=== PATIENT | female | born 1930 | race Caucasian/White ===

== ENCOUNTER 2016-11-21 11:07 | Day surgery (SDC) | payer MEDICARE, OTHER ==
[~2016-11-21 11:07] MED LIST: ACET325T11 PO; EDOX1TAB5 PO; GLUC250C5 PO; METO25CR PO; TAB-TAB PO; VITA-83 PO
[2016-11-21] MEDS ORDERED: LACTATED RINGER'S 1000 ML IV SCH (12:30)
[2016-11-21] MEDS ORDERED: INSULIN HUMAN REGULAR 1,000 UNITS/10 ML VIAL SQ PRN (12:30)
[2016-11-21] MEDS ORDERED: SODIUM CHLORID 0.9% 500 ML IV SCH (12:30)
[2016-11-21] MEDS ORDERED: METOPROLOL TARTRATE 25 MG TAB PO PRN (12:30)
[2016-11-21] MEDS ORDERED: EDOX1TAB5 PO (12:37)
[2016-11-21] MEDS ORDERED: GLUC1CAP14 PO (12:37)
[2016-11-21] MEDS ORDERED: METO25TA6 PO (12:37)
[2016-11-21] MEDS ORDERED: ASCO500C PO (12:37)
[2016-11-21] MEDS ORDERED: MULT1TAB84 PO (12:37)
[2016-11-21] MEDS ORDERED: AMIO200T PO (12:37)
[2016-11-21] MEDS ORDERED: ACET1CAP18 PO (12:37)
[2016-11-21] MEDS ORDERED: PROPOFOL 200 MG/20 ML AMP IV ONE (13:30)
--- NOTE | 2016-11-21 17:31 | EKG ---
Date Performed: 11/21/2016 Time Performed: 11:43:48 PTAGE: 86 years EKG: Atrial fibrillation Extensive ST-T changes are nonspecific Abnormal ECG PREVIOUS TRACING : 07/01/2016 13.39 Atrial fibrillation is new since prior tracing. Clinical co rrelation recommended. DOCTOR: Martin Guadarrama Interpretating Date/Time 11/21/2016 17:28:51
--- NOTE | 2016-11-22 17:17 | EKG ---
Date Performed: 11/21/2016 Time Performed: 13:48:04 PTAGE: 86 years EKG: Sinus rhythm with PAC(s) with 1st degree A-V block Consider left atrial abnormality Septal ST changes are nonspec ific Compared to previous tracing, the rhythm has changed from atrial fibrillation to sinus rhythm wi th PACs Abnormal ECG PREVIOUS TRACING : 11/21/2016 11.43 DOCTOR: Charly Ndiaye Interpretating Date/Time 11/22/2016 17:15:48
--- NOTE | 2016-12-03 20:59 | PD.CARD ---
Cardiology Procedure Note Procedure Name: DC cardioversion Procedure Date: Nov 21, 2016 Procedure Note: Indication: Atrial fibrillation Procedure: 200 J biphasic shock resulted in sinus rhythm Dx: Successful cardioversion of atrial fibrillation Plan: Continue anticoagulation. F/u w me as outpatient. Yelitza Vela MD Dec 03, 2016 20:59
== END 2016-11-21 15:19 | disposition home or self-care (01) ==
LOC: HCAT 11:07 → HDIC 11:07 → HCAT 15:19
PROVIDERS: ATTEND Internal Medicine Interventional Cardiology
DX: I48.0 Paroxysmal atrial fibrillation (principal); I47.1 Supraventricular tachycardia; I34.0 Nonrheumatic mitral (valve) insufficiency; I36.1 Nonrheumatic tricuspid (valve) insufficiency
CPT/HCPCS: 92960; 93005

== ENCOUNTER 2017-01-21 11:44 | Day surgery (SDC) | payer MEDICARE, OTHER ==
[~2017-01-21 11:44] MED LIST changes: +ACET1CAP18 PO; -ACET325T11 PO; +AMIO200T PO; +ASCO500C PO; +GLUC1CAP14 PO; -GLUC250C5 PO; -METO25CR PO; +METO25TA6 PO; +MULT1TAB84 PO; -TAB-TAB PO; -VITA-83 PO
[2017-01-21] MEDS ORDERED: SODIUM CHLORID 0.9% 500 ML IV PRN (12:30)
[2017-01-21] MEDS ORDERED: INSULIN HUMAN REGULAR 1,000 UNITS/10 ML VIAL SQ PRN (12:30)
[2017-01-21] MEDS ORDERED: METOPROLOL TARTRATE 25 MG TAB PO PRN (12:30)
[2017-01-21] MEDS ORDERED: POVIDONE IODINE 5% (ANTISEPSIS KIT) 4 APPLICATIONS EACH NARE PRN (12:30)
[2017-01-21] MEDS ORDERED: LACTATED RINGER'S 1000 ML IV PRN (12:30)
[2017-01-21] MEDS ORDERED: CHLORHEXIDINE GLUCONATE 2 % 1 PACK (2 CLOTHS) TOPICAL PRN (12:30)
--- NOTE | 2017-01-22 13:48 | EKG ---
Date Performed: 01/21/2017 Time Performed: 12:15:44 PTAGE: 86 years EKG: Sinus bradycardia with borderline 1st degree A-V block --- Suspect arm lead reversal - only aVF, V1-V6 analyzed --- Borderline ECG Compared to prior tracing no significant change PREVIOUS TRACING : 11/21/2016 13.48 DOCTOR: Matthew Manrique Interpretating Date/Time 01/22/2017 13:43:03
== END 2017-01-21 13:18 | disposition home or self-care (01) ==
LOC: HCVO 11:44 → HDIC 11:44 → HCVO 13:18
PROVIDERS: ATTEND Internal Medicine Interventional Cardiology
DX: I48.0 Paroxysmal atrial fibrillation (principal); Z53.09 Procedure and treatment not carried out because of other contraindication
CPT/HCPCS: 93005; G0463; 99211

== ENCOUNTER 2017-09-24 11:37 | Emergency (ER) | payer MEDICARE, OTHER ==
[~2017-09-24] VITALS: Ht 170.2 cm; Wt 79.0 kg
[~2017-09-24 11:37] MED LIST changes: +METO1TAB42 PO; -METO25TA6 PO
[2017-09-24 11:41] VITALS: BP 115/54; PULSE 62; RESP 18; TEMP 97.4; O2SAT 94
[2017-09-24] MEDS ORDERED: VITA1000 PO (11:54)
[2017-09-24] MEDS ORDERED: MULT-65 PO (11:55)
[2017-09-24] MEDS ORDERED: ONDANSETRON HCL 4 MG/2 ML VIAL IM ONE (12:00)
--- NOTE | 2017-09-24 12:07 | PD ---
HPI Chief Complaint: Headache Time Seen by Provider: 11:49 Travel History International Travel<30 days: No Contact w/Intl Traveler<30days: No Traveled to known affect area: No History of Present Illness HPI This patient complains of headache. Duration 18 hours. Severity is mild to moderate. No thunderclap onset. No head injury. She does take a blood thinner for history of A. fib. No alleviating factors. No exacerbating factors. Described as a bilateral frontal throbbing. PFSH Past Medical History Heart Rhythm Problems: Yes Diminished Hearing: No Influenza Vaccination: Yes ?: Not Social History Alcohol Use: Yes (once in a while) Tobacco Use: No Allergies-Medications (Allergen,Severity, Reaction): Coded Allergies: No Known Allergies (Unverified Adverse Reaction, Unknown, 09/24/17) Reported Meds & Prescriptions Reported Meds & Active Scripts Active Reported Multi-Vitamin Daily (Multiple Vitamin) 1 Tab Tab 1 Tab PO DAILY Vitamin D-1000 (Cholecalciferol) 1,000 Unit Tab 1,000 Units PO DAILY Savaysa (Edoxaban) 60 Mg Tab 60 Mg PO DAILY Review of Systems General / Constitutional: No: Fever Eyes: No: Visual changes HENT: Positive: Headaches Cardiovascular: Positive: Irregular Rhythm, No: Chest Pain or Discomfort Respiratory: No: Shortness of Breath Gastrointestinal: Positive: Nausea, No: Abdominal Pain Genitourinary: No: Dysuria Musculoskeletal: No: Pain Skin: No Rash Neurologic: Positive: Headache, No: Weakness Psychiatric: No: Depression Endocrine: No: Polydipsia Hematologic/Lymphatic: No: Easy Bruising Physical Exam Narrative GENERAL: Well-nourished, well-developed patient in no apparent distress. SKIN: Focused skin assessment reveals no rash and nodules. Skin is Warm and dry. HEAD: Atraumatic. Normocephalic. EYES: Pupils equal and round. No scleral icterus. No injection or drainage. ENT: No nasal bleeding or discharge. Mucous membranes pink and moist. NECK: Trachea midline. No JVD. No meningeal signs CARDIOVASCULAR: Irregularly irregular rhythm. No murmur appreciated. RESPIRATORY: No accessory muscle use. Clear to auscultation. Breath sounds equal bilaterally. GASTROINTESTINAL: Abdomen soft, non-tender, nondistended. Hepatic and splenic margins not palpable. MUSCULOSKELETAL: No obvious deformities. No clubbing. No cyanosis. No edema. NEUROLOGICAL: Awake and alert. No obvious cranial nerve deficits. Motor grossly within normal limits. Normal speech. PSYCHIATRIC: Appropriate mood and affect; insight and judgment normal. Data Data Last Documented VS Vital Signs Date Time Temp Pulse Resp B/P (MAP) Pulse Ox O2 Delivery O2 Flow Rate FiO2 09/24/17 13:07 57 18 123/58 (79) 96 Room Air 09/24/17 11:[address] Brain W/O Iv Contrast(Rout) (09/24/17 ) Electrocardiogram (09/24/17 ) Ondansetron Inj (Zofran Inj) (09/24/17 12:00) [facility] Medical Decision Making Medical Screen Exam Complete: Yes Emergency Medical Condition: Yes Medical Record Reviewed: Yes Differential Diagnosis Differential diagnosis includes migraine, tension headache, cluster headache, meningitis. Narrative Course I have reviewed the patient's electronic medical record. Patient has had 2 ablations in the past for A. fib Patient is neurologically intact. Presentation not consistent with subarachnoid hemorrhage or meningitis or stroke. Does not seem like temporal arteritis She declines pain medicine, pain is mild at this time. She has mild nausea. Zofran given Brain CT is normal I reviewed her EKG which shows A. fib with some mild bradycardia Stable for outpatient follow-up. On recheck patient's pain is essentially gone and she is dozing off contentedly Diagnosis Primary Impression: Headache Qualified Codes: R51 - Headache Additional Instructions: The patient was advised to follow up with their physician and return if they worsen. Med/Other Pt SpecificInfo: Other Disposition: 01 DISCHARGE HOME Condition: Stable Tk Ugalde MD Sep 24, 2017 12:07
--- NOTE | 2017-09-24 13:05 | RADRPT ---
EXAM DATE/TIME: 09/24/2017 12:50 [facility] COMPARISON: No previous studies available for comparison. INDICATIONS : Cephalgia. RADIATION DOSE: 62.61 CTDIvol (mGy) MEDICAL HISTORY : None SURGICAL HISTORY : None. ENCOUNTER: Initial ACUITY: 2 days PAIN SCALE: 7/10 LOCATION: cranial TECHNIQUE: Multiple contiguous axial images were obtained of the head. Using automated exposure control and adj ustment of the mA and/or kV according to patient size, radiation dose was kept as low as reasonably a chievable to obtain optimal diagnostic quality images. DICOM format image data is available electro nically for review and comparison. FINDINGS: CEREBRUM: The ventricles are normal for age. No evidence of midline shift, mass lesion, hemorrhage or acute in farction. No extra-axial fluid collections are seen. POSTERIOR FOSSA: The cerebellum and brainstem are intact. The 4th ventricle is midline. The cerebellopontine angle i s unremarkable. EXTRACRANIAL: The visualized portion of the orbits is intact. SKULL: The calvaria is intact. No evidence of skull fracture. CONCLUSION: 1. No acute intracranial abnormalities. Jorge Ames MD on September 24, 2017 at 13:02 Board Certified Radiologist. This report was verified electronically.
[2017-09-24 13:07] VITALS: BP 123/58; PULSE 57; RESP 18; O2SAT 96
--- NOTE | 2017-09-25 23:35 | EKG ---
Date Performed: 09/24/2017 Time Performed: 12:13:35 PTAGE: 86 years EKG: SINUS BRADYCARDIA NON-SPECIFIC ST/T WAVE CHANGES ABNORMAL ECG PREVIOUS TRACING : 01/21/2017 12.15 Compared to prior tracing no significant change DOCTOR: Lester Sanchez Interpretating Date/Time 09/25/2017 23:33:54
== END 2017-09-24 13:34 | disposition home or self-care (01) ==
LOC: PHED 11:37
DX: R51 Headache (principal); I48.91 Unspecified atrial fibrillation; R00.1 Bradycardia, unspecified; Z79.01 Long term (current) use of anticoagulants
CPT/HCPCS: 70450; 93005; 96372; 99285; J2405